=== PATIENT | female | born 1980 | race Hispanic/Latino ===

== ENCOUNTER → 2018-07-11 | Outpatient (CLI) | payer BC | LOC: MAMMO 08:22 | PROVIDERS: ATTEND Obstetrics & Gynecology | DX: Z12.31 Encounter for screening mammogram for malignant neoplasm of breast (principal) | CPT/HCPCS: 77067 ==

== ENCOUNTER 2020-07-07 07:48 | Emergency (ER) | payer BC ==
[~2020-07-07] VITALS: Ht 160 cm; Wt 106.1 kg
[~2020-07-07 07:48] MED LIST: IBUPROFEN IB200 MG PO; TYLENOL WITH C1 EACH PO; ZOFRAN4 MG SL
[2020-07-07] MEDS ORDERED: METFORMIN HCL500 MG PO (08:11)
[2020-07-07] MEDS ORDERED: JANUVIA25 MG PO (08:11)
[2020-07-07] MEDS ORDERED: CEPHALEXIN500 MG PO (09:17)
[2020-07-07] MEDS ORDERED: NYSTATIN15 G2 TOP (09:19)
[2020-07-07] MEDS ORDERED: NYSTATIN15 GM TOP (09:24)
[2020-07-07 09:44] VITALS: BP 148/93
== END 2020-07-07 09:53 | disposition home or self-care (01) ==
LOC: FSED 07:57
DX: M79.672 Pain in left foot (principal); L03.116 Cellulitis of left lower limb; B35.3 Tinea pedis; E11.9 Type 2 diabetes mellitus without complications
CPT/HCPCS: 99283

== ENCOUNTER 2021-01-31 18:10 | Emergency (ER) | payer BC ==
[~2021-01-31] VITALS: Ht 160 cm; Wt 106.1 kg
[~2021-01-31 18:10] MED LIST changes: +CEPHALEXIN500 MG PO; +JANUVIA25 MG PO; +METFORMIN HCL500 MG PO; +NYSTATIN15 G2 TOP; +NYSTATIN15 GM TOP
[2021-01-31] MEDS ORDERED: PROMETHAZINE HCL (IM) 25 MG/ML VIAL IM ONE (19:24)
[2021-01-31] MEDS ORDERED: FAMOTIDINE 20 MG/2 ML VIAL IV ONE (19:25)
[2021-01-31] MEDS ORDERED: FAMOTIDINE 20 MG/2 ML VIAL IV STA (19:25)
[2021-01-31] MEDS ORDERED: ONDANSETRON HCL INJ 2MG/ML 2ML 2 MG/ML VIAL ONE (19:25)
[2021-01-31] MEDS ORDERED: ONDANSETRON HCL INJ 2MG/ML 2ML 2 MG/ML VIAL IV STA (19:25)
[2021-01-31] MEDS ORDERED: SODIUM CHLORIDE 0.9% 1000ML 1,000 ML ONE (19:25)
[2021-01-31] MEDS ORDERED: PROMETHAZINE 12.5MG/ NACL 0.9% 12.5 MG/50 ML BAG IV ONE (19:30)
[2021-01-31] MEDS ORDERED: SODIUM CHLORIDE 0.9% 1000ML 1,000 ML IV ONE (19:30)
[2021-01-31] MEDS ORDERED: IOPAMIDOL 370 MG/ML 200 ML INFUS..BTL INJ ONE (21:47)
[2021-01-31] MEDS ORDERED: SODIUM CHLORIDE 0.9% 50ML 50 ML ONE (21:47)
[2021-01-31] MEDS ORDERED: DICYCLOMINE HCL20 MG PO (22:50)
[2021-01-31] MEDS ORDERED: ONDANSETRON ODT4 MG PO (22:51)
[2021-01-31] MEDS ORDERED: FAMOTIDINE40 MG PO (22:53)
[2021-01-31] MEDS ORDERED: DICYCLOMINE HCL 20 MG TAB PO ONE (23:00)
[2021-01-31] MEDS ORDERED: DICYCLOMINE HCL 10 MG CAP ONE (23:03)
== END 2021-01-31 23:28 | disposition home or self-care (01) ==
LOC: FSED 19:45
DX: R11.2 Nausea with vomiting, unspecified (principal); R10.31 Right lower quadrant pain; E11.65 Type 2 diabetes mellitus with hyperglycemia; R19.7 Diarrhea, unspecified; I10 Essential (primary) hypertension; E11.42 Type 2 diabetes mellitus with diabetic polyneuropathy
CPT/HCPCS: 74177; 80048; 80076; 81003; 81025; 85025; 99284; J2405; J2550; J7030; Q9967